=== PATIENT | male | born 1995 | race Caucasian/White ===

== ENCOUNTER 2017-01-19 14:43 | Emergency (ER) | payer OTHER ==
[~2017-01-19] VITALS: Ht 185.4 cm; Wt 94.0 kg
[~2017-01-19 14:43] MED LIST: DDAVP0.2 MG PO; DEPAKOTE500 MG PO; KLONOPIN0.25 MG PO; LEXAPRO10 MG PO; SEROQUEL
[2017-01-19 17:31] VITALS: BP 125/81
== END 2017-01-19 17:32 | disposition home or self-care (01) ==
LOC: EME 14:43
DX: S80.01XA Contusion of right knee, initial encounter (principal); M54.5 Low back pain; V43.52XA Car driver injured in collision with other type car in traffic accident, initial encounter
CPT/HCPCS: 73564; 99281; 99283

== ENCOUNTER 2017-05-15 19:58 | Emergency (ER) | payer OTHER ==
[~2017-05-15] VITALS: Ht 185.4 cm; Wt 94.5 kg
[2017-05-15] MEDS ORDERED: MOTRIN800 MG PO (22:26)
[2017-05-15 22:36] VITALS: BP 129/69
== END 2017-05-15 22:59 | disposition home or self-care (01) ==
LOC: EME 19:58 → RME 19:58
DX: S83.92XA Sprain of unspecified site of left knee, initial encounter (principal); S76.112A Strain of left quadriceps muscle, fascia and tendon, initial encounter; W18.30XA Fall on same level, unspecified, initial encounter; Y93.61 Activity, american tackle football; Z88.8 Allergy status to other drugs, medicaments and biological substances
CPT/HCPCS: 73564; 99281; 99284

== ENCOUNTER 2017-07-12 18:06 | Emergency (ER) | payer OTHER ==
[~2017-07-12] VITALS: Ht 185.4 cm; Wt 93.2 kg
[~2017-07-12 18:06] MED LIST changes: +MOTRIN800 MG PO
[2017-07-12 18:32] LABS: MCH 30.9 PG (29.0-34.0); MCHC 35.3 G/DL (30.0-36.0); MCV 87.4 FL (86-99); PLATELET COUNT 236 K/uL (156-360); RBC DIS.WIDTH-CV 11.8 % (11.8-14.6); RED BLOOD COUNT 4.92 M/uL (4.00-5.50); WHITE BLOOD COUNT 10.5 K/uL (4.1-10.2)
[2017-07-12 18:34] LABS: MEAN PLAT.VOLUME 12.1 uM^3 (9.0-12.4)
[2017-07-12 18:41] LABS: CHLORIDE 105 mEq/L (99-109); POTASSIUM 3.8 mEq/L (3.7-5.4); SODIUM 139 mEq/L (136-147)
[2017-07-12 18:42] LABS: GLUCOSE 106 mg/dL (70-99)
[2017-07-12 18:44] LABS: ANION GAP 12 MEQ/L (2-14)
[2017-07-12 18:45] LABS: SERUM ETHYL ALCOHOL < 10 mg/dL
[2017-07-12 18:46] LABS: GFR ESTIMATE (CALCULATED) > 59 mL/min/
[2017-07-12 18:47] LABS: UREA NITROGEN (BUN) 6 mg/dL (9-23)
[2017-07-12 19:36] LABS: AMPHETAMINE NEGATIVE (500 ng/mL); BARBITURATES NEGATIVE (200 ng/mL); BENZODIAZEPINES NEGATIVE (150 ng/mL); COCAINE NEGATIVE (150 ng/mL); INTERNAL CONTROLS VALID? YES; METHADONE NEGATIVE (200 ng/mL); METHAMPHETAMINE NEGATIVE (500 ng/mL); OPIATES (MORPHINE) NEGATIVE (100 ng/mL); OXYCODONE NEGATIVE (100 ng/mL); PHENCYCLIDINE NEGATIVE (25 ng/mL); PROPOXYPHENE NEGATIVE (300 ng/mL); THC CANNABINOIDS NEGATIVE (50 ng/mL); TRICYCLIC ANTIDEPRESSANTS PRESUMPTIVE POSITIVE (300 ng/mL)
[2017-07-12 20:19] VITALS: BP 136/97
== END 2017-07-12 20:20 | disposition home or self-care (01) ==
LOC: EME 18:06
DX: F31.32 Bipolar disorder, current episode depressed, moderate (principal); F90.2 Attention-deficit hyperactivity disorder, combined type; F70 Mild intellectual disabilities; F41.9 Anxiety disorder, unspecified; Z88.8 Allergy status to other drugs, medicaments and biological substances
CPT/HCPCS: 80048; 85027; 90839; 99281; 99284; G0480

== ENCOUNTER 2017-12-20 17:16 | Emergency (ER) | payer OTHER ==
[~2017-12-20] VITALS: Ht 182.9 cm; Wt 97.9 kg
[2017-12-20] MEDS ORDERED: MOTRIN600 MG PO (18:39)
[2017-12-20] MEDS ORDERED: FLEXERIL10 MG PO (18:39)
[2017-12-20 18:45] VITALS: BP 156/99
== END 2017-12-20 18:45 | disposition home or self-care (01) ==
LOC: EME 17:16
DX: M54.5 Low back pain (principal); F90.9 Attention-deficit hyperactivity disorder, unspecified type; F31.9 Bipolar disorder, unspecified; Z88.8 Allergy status to other drugs, medicaments and biological substances
CPT/HCPCS: 99281; 99284; J1885

== ENCOUNTER → 2018-02-16 | Emergency (ER) | payer OTHER ==
[~2018-02-16] VITALS: Ht 185.4 cm; Wt 96.4 kg
[~2018-02-16] MED LIST changes: +FLEXERIL10 MG PO; +MOTRIN600 MG PO
[2018-02-16 18:32] VITALS: BP 150/92
== END | disposition home or self-care (01) ==
LOC: EME 14:52
DX: F41.9 Anxiety disorder, unspecified (principal); F90.9 Attention-deficit hyperactivity disorder, unspecified type
CPT/HCPCS: 80048; 85027; 99281; 99284; G0480